=== PATIENT | female | born 1980 | race American Indian/Alaskan Native ===

== ENCOUNTER 2017-08-10 05:52 | Day surgery (SDC) | payer MEDICARE ==
[2017-08-10] MEDS ORDERED: WATER FOR IRRIG STERILE IR ONE (07:17)
[2017-08-10] MEDS ORDERED: WATER FOR IRRIG STERILE ONE (07:17)
[2017-08-10] MEDS ORDERED: DIPRIVAN 10 MG/ML IV ONE ×2 (07:38→07:58)
--- NOTE | 2017-08-10 07:59 | Discharge Summary ---
Providers - Providers Attending physician: JOSE LYNN Hospitalization Condition: Good Procedures: egd Hospital course: 37 y.o. F presented for an EGD for evaluation prior to upcoming lap sleeve gastrectomy and dyspepsia. She tolerated the procedure well. Disposition: DC-01 TO HOME OR SELFCARE Core Measure Documentation - Palliative Care Palliative Care/ Comfort Measures: Not Applicable - Core Measures Any of the following diagnoses?: none Exam - Physical Exam Narrative exam: no change from prior - Constitutional Vitals: Temp Pulse Resp BP Pulse Ox 98.4 F 85 19 169/90 97 08/10/17 07:21 08/10/17 07:21 08/10/17 07:21 08/10/17 07:21 08/10/17 07:21 Plan Activity: no restrictions Additional Instructions: Follow up for up coming gastric sleeve
--- NOTE | 2017-08-10 07:59 | Anesthesia Day of Surgery ---
Anesthesia Day of Surgery - Day of Surgery Patient Examined: Yes Patient H&P Reviewed: Yes Patient is NPO: Yes
--- NOTE | 2017-08-10 07:59 | Anesthesia Consultation ---
Anesthesia Consult and Med Hx Date of service: 08/10/17 - Airway Anesthetic Teeth Evaluation: Good ROM Head & Neck: Adequate Mental/Hyoid Distance: Adequate Mallampati Class: Class II Intubation Access Assessment: Possibly Difficult - Pulmonary Exam CTA: Yes - Cardiac Exam Cardiac Exam: RRR - Pre-Operative Health Status ASA Pre-Surgery Classification: ASA3 Proposed Anesthetic Plan: MAC - Pulmonary Hx Smoking: No Hx Asthma: Yes (inhaler used 9 months ago) Hx Sleep Apnea: Yes - Cardiovascular System Hx Hypertension: Yes - Other Systems Hx Obesity: Yes - Additional Comments Anesthesia Medical History Comments: NAC
[2017-08-10] MEDS ORDERED: NACL 0.9% 1000 ML 1,000 ML IV SCH (08:00)
--- NOTE | 2017-08-10 08:01 | Operative Report ---
Operative Report Operative Report: - EGD DATE: 08/10/17 SURGERY: Upper endoscopy. SURGEON: Dr. Heath M.D. CR[employer] D[employer] MIXER: Annalee Medel DO PRE OP DX:dyspepsia POST OP DX: small hiatal hernia TYPE OF ANESTHESIA: MAC. ESTIMATED BLOOD LOSS: None. COMPLICATIONS: None. SPECIMENS REMOVED: None. FINDINGS: 1. Small hiatal hernia. 2. Otherwise, normal esophagus, stomach and first portion of duodenum. INDICATIONS:INDICATION FOR PROCEDURE: Patient is a 37year-old female with a long history of morbid obesity and recent dyspepsia. She is planned to have a weight loss procedure and is here for preoperative planning EGD to ensure there are no anatomical issues with her stomach. PROCEDURE DETAILS: After consent was reviewed, patient was taken back to the operating room where patient was placed in the left lateral decubitus position and a bite block was placed in the mouth. After a time-out was called, MAC anesthesia was initiated. I then passed the endoscope into her oropharynx, into her esophagus, visualized the entire esophagus, which was all within normal limits. I then visualized the stomach and the first portion of the duodenum and there were no abnormalities I could clearly visualize. I then retroflexed the scope in the stomach and visualized the hiatus and I could see a small hiatal hernia. I then desufflated the stomach and removed the endoscope. Patient tolerated procedure well and was transferred to recovery room in good and stable condition.
[2017-08-10 08:19] VITALS: BP 130/87
--- NOTE | 2017-08-10 09:33 | Post Anesthesia Evaluation ---
- Post Anesthesia Evaluation Patient Participated: Yes Airway Patent: Yes Stable Respiratory Function: Yes Nausea/Vomiting: No Temp > 96.8F: Yes Pain Manageable: Yes Adequeate Hydration: Yes Anesthesia Complications: No
== END 2017-08-10 05:53 | disposition home or self-care (01) ==
LOC: GIO 05:52
PROVIDERS: ATTEND Specialist
DX: K30 Functional dyspepsia (principal); K44.9 Diaphragmatic hernia without obstruction or gangrene; J45.909 Unspecified asthma, uncomplicated; I10 Essential (primary) hypertension; G47.33 Obstructive sleep apnea (adult) (pediatric); E66.01 Morbid (severe) obesity due to excess calories; Z68.44 Body mass index [BMI] 60.0-69.9, adult; Z98.890 Other specified postprocedural states; Z99.89 Dependence on other enabling machines and devices; Z88.6 Allergy status to analgesic agent; Z88.8 Allergy status to other drugs, medicaments and biological substances
CPT/HCPCS: 43235; 81025; J2704; J7030